=== PATIENT | female | born 1995 | race Hispanic/Latino ===

== ENCOUNTER 2020-01-04 11:29 | Inpatient (IN) | payer BC ==
[~2020-01-04 11:29] MED LIST: ADVIL100 MG PO; NORCO 5-325 TA1 EACH PO; OXYCODON-ACETA1 EAC2 PO; PRENATAL FORMU1 EACH PO; ZOFRAN ODT4 MG PO
--- NOTE | 2020-01-04 13:34 | NUR ---
01/04/20 1334 Jodie Moctezuma 1324-PATIENT ARRIVED TO PACU ON RA AWAKE DENIES PAIN OR NAUSEA. LR WIHT 20 PITOCIN INFUSING TO LEFT HAND ARM CDI. SR. FUNDUS FIRM AT UMBILICUS LIGHT RUBRA DRAINAGE ON PRERNA PAD. DAD AT BEDSIDE. DUMAS CATHETER DRAINING YELLOW URINE.
--- NOTE | 2020-01-05 08:49 | PR ---
[facility] [address] [facility] [place], [place] [address] Signed PP Progress Notes Datetime Report Generated by CPN: 01/05/2020 08:49 SUBJECTIVE: [id number] Pain: Within normal limits Nausea/Vomiting: Denies Flatus: Yes Vital Signs: [id number] Vital Signs: Reviewed; Within Normal Limits EXAM: [id number] Cardiovascular: Normal Respiratory: Normal Abdomen/Uterus: Abnormal Lochia: Normal Vulva/Perineum: Not Done Breasts: Not Done CVA Tenderness: Not Done Extremities: Normal Incision: Not Applicable Progress: Normal Exam Comments: Abdomen with active BS. Fundus firm, NT @ U-1. H/H 11.7/34.6, WBC 10, plat 183k IMPRESSION/PLAN/PROCEDURES: [id number] Impression: Normal progression Other Plans: ambulate, shower, D/C kohler Progress Notes: Doing well. Will continue routine care. Signing Physician: Kendra Amin MD Copies: ~ *Electronically Signed* 01/05/20 0849 KENDRA AMIN MD PATIENT NAME: TANYA PATEL PROGRESS NOTE DATE OF : [birth year] PHYSICIAN: KENDRA AMIN MD RPT #: [id number] REPORT IS CONFIDENTIAL AND NOT TO BE RELEASED WITHOUT AUTHORIZATION
--- NOTE | 2020-01-06 10:09 | PR ---
[facility] [address] [facility] [place] [place], [place] [address] Signed PP Progress Notes Datetime Report Generated by TIMMY: 01/06/2020 10:08 SUBJECTIVE: [id number] Pain: Within normal limits Nausea/Vomiting: Denies Flatus: Yes Vital Signs: [id number] Vital Signs: Reviewed; Within Normal Limits EXAM: [id number] Cardiovascular: Not Done Respiratory: Not Done Abdomen/Uterus: Abnormal Lochia: Not Done Vulva/Perineum: Not Done Breasts: Not Done CVA Tenderness: Not Done Extremities: Normal Incision: Normal Progress: Normal Exam Comments: Abdomen with active BS. Fundus firm, NT @ U-1. IMPRESSION/PLAN/PROCEDURES: [id number] Impression: Normal progression Plan: Remove deisy; Discharge Other Plans: ambulate, shower, D/C kohler Progress Notes: Doing well. She is ready for D/C. Signing Physician: Kendra Amin MD Copies: ~ *Electronically Signed* 01/06/20 1008 KENDRA AMIN MD PATIENT NAME: TANYA PATEL PROGRESS NOTE DATE OF : 93 PHYSICIAN: KENDRA AMIN MD RPT #: [id number] REPORT IS CONFIDENTIAL AND NOT TO BE RELEASED WITHOUT AUTHORIZATION
--- NOTE | 2020-01-08 19:36 | OR ---
[facility] [address], [place] [address] Signed DATE OF OPERATION: 01/04/2020 SURGEON: Kendra Amin MD SAP ABAP PROGRAMMER: Dr. Blake. PREOPERATIVE DIAGNOSES: Term , active labor, history of shoulder dystocia. POSTOPERATIVE DIAGNOSES: Term , active labor, history of shoulder dystocia. Delivered with Abdominal adhesions. PROCEDURES: Primary section with low segment transverse uterine incision. Lysis of adhesions. ANESTHESIA: Spinal. ESTIMATED BLOOD LOSS: 600 mL. DRAINS: [place] catheter. INDICATIONS AND FINDINGS: The patient is a 24-year-old female, 3, para 2, admitted at 38 and 4/7th weeks in active labor. The patient has a history of shoulder dystocia with her last and this child was felt to be larger than her last, and she had been counseled previously for a primary section. This had originally been scheduled for Wednesday, but she presented in labor today. The decision was made to proceed with primary section at this time. She was taken to the operating room, where she was delivered of a little boy via lower segment transverse uterine incision from the LOT position with Apgars of 6 and 9 and weight of 8 pounds 1 ounce. The uterus, tubes, ovaries, placenta appeared normal. There was a small adhesion of the omentum to the anterior abdominal wall, which was lysed. DESCRIPTION OF PROCEDURE: Electronically Signed By: KENDRA AMIN MD 01/08/20 1936 PATIENT NAME: TANYA PATEL OPERATIVE REPORT DATE OF : 89 REPORT #: [id number] PHYSICIAN: KENDRA AMIN MD PCP: KENDRA AMIN MD REPORT IS CONFIDENTIAL AND NOT TO BE RELEASED WITHOUT AUTHORIZATION [facility] [address], [place] [address] Signed The patient was prepped and draped in the supine position. A Pfannenstiel skin incision was made and carried down through the fascia. The incision was extended laterally. The inferior and superior fascial flaps were then created. The muscles were bluntly divided. The peritoneum opened sharply and the incision extended superiorly and inferiorly. The Boom retractor was then placed. The peritoneal reflection was identified and the uterine incision made at the upper aspect of the peritoneal reflection. The baby was delivered with the above findings and handed off to the pediatric staff in attendance. The placenta was removed manually. The uterus was swept with a lap tape assuring no remaining fragments. The edges of the incision were identified and the uterus was closed in 2 layers using 0 Monocryl. The first layer was a running locking stitch and second was a vertical imbricating stitch. The incision did extend to the angle on the patient's left and there was some oozing from that angle, and [place] sutures were placed ligating the uterine vessels with [id number] sutures on that left angle with good hemostasis noted. The abdomen was then copiously irrigated and inspected. Bleeding points were controlled with cautery, it was felt that the incision was hemostatic. There was a tear in the peritoneum on the left but there was no evidence of any ongoing bleeding. The retractor was removed and the peritoneum identified. The adhesion was identified and it was found to be a loop of omentum, this was divided using Kimberley clamps and free tied with 2-0 chromic. Following this, Veronica powder was sprinkled over the incision and the defect in the peritoneum on the patient's left side. An ACell graft was then laid over the incision to aid in healing. The peritoneum was then closed with a running suture of 3-0 Vicryl. The muscles were brought together with interrupted sutures of 0 Vicryl. Bleeding points were controlled with cautery. This layer was irrigated and inspected, and good hemostasis was noted. Remaining Veronica powder was sprinkled in this area followed by ACell powder to aid in healing. The fascia was then closed from each angle to the midline with a running suture of 0 Vicryl. The subcutaneous tissue was irrigated and bleeding points controlled. The deep space was closed with interrupted sutures of 3-0 Vicryl. The skin was closed with deisy. All sponge and needle counts were correct. She tolerated the procedure well and was taken to the recovery room in good condition. Kendra Amin MD PJW/MODL /[id number] Electronically Signed By: KENDRA AMIN MD 01/08/20 1936 PATIENT NAME: TANYA PATEL OPERATIVE REPORT DATE OF : [birth year] REPORT #: [id number] PHYSICIAN: KENDRA AMIN MD PCP: KENDRA AMIN MD REPORT IS CONFIDENTIAL AND NOT TO BE RELEASED WITHOUT AUTHORIZATION [address] [address] Signed cc: Dr. Blake Copies: ~ Electronically Signed By: KENDRA AMIN MD 01/08/20 1936 PATIENT NAME: TANYA PATEL OPERATIVE REPORT DATE OF : 89 REPORT #: [id number] PHYSICIAN: KENDRA AMIN MD PCP: KENDRA AMIN MD REPORT IS CONFIDENTIAL AND NOT TO BE RELEASED WITHOUT AUTHORIZATION
== END 2020-01-06 12:45 | disposition home or self-care (01) | DRG 788 ==
LOC: FBCO 11:29 → FBC 11:45 → FBCO 11:53 → FBC 01-06 12:45
PROVIDERS: ADMIT Obstetrics & Gynecology
PROC: 10D00Z1 Extraction of Products of Conception, Low, Open Approach (ICD-10-PCS; principal; 2020-01-04 12:15)
DX: O99.824 Streptococcus B carrier state complicating childbirth (principal); Z3A.38 38 weeks gestation of pregnancy; Z37.0 Single live birth; O32.2XX0 Maternal care for transverse and oblique lie, not applicable or unspecified
CPT/HCPCS: 01961; 36415; 85027; A9270; J0690; J2001; J2274; J2370; J2405; J2590; J3010